=== PATIENT | male | born 1985 | race Caucasian/White ===

== ENCOUNTER 2018-09-01 01:16 | Emergency (ER) | payer SELFPAY ==
[~2018-09-01] VITALS: Ht 170.2 cm; Wt 70.0 kg
[~2018-09-01 01:16] MED LIST: BACTRIM DS1 TAB PO
[2018-09-01] MEDS ORDERED: AMOXICILLIN500 MG PO ×2 (01:52→02:39)
[2018-09-01 02:43] VITALS: BP 110/64
== END 2018-09-01 02:43 | DRG 605 ==
LOC: ED 01:16
PROC: 0HC8XZZ Extirpation of Matter from Buttock Skin, External Approach (ICD-10-PCS; principal; 2018-09-01)
DX: S20.412A Abrasion of left back wall of thorax, initial encounter (principal); S20.411A Abrasion of right back wall of thorax, initial encounter; S30.850A Superficial foreign body of lower back and pelvis, initial encounter; Y35.493A Legal intervention involving other sharp objects, suspect injured, initial encounter; Y92.89 Other specified places as the place of occurrence of the external cause